=== PATIENT | female | born 1980 | race African-American/Black ===

== ENCOUNTER 2022-07-27 12:01 | Emergency (ER) | payer OTHER, SELFPAY ==
[2022-07-27 12:11] VITALS: BP 173/83; PULSE 89; RESP 20; TEMP 35.8; O2SAT 100
--- NOTE | 2022-07-27 12:45 | ED.URI ---
HPI - URI/Sore Throat General Chief Complaint: Upper Respiratory Infection Stated Complaint: uri Time Seen by Provider: 07/27/22 12:45 Source: patient, RN notes reviewed and old records reviewed Mode of arrival: ambulatory Limitations: no limitations History of Present Illness HPI Narrative: [age] old female presents to the [facility] complaints of sinus congestion that is been going on since [place], worse over the last couple of days. Denies any fevers. No chest pain or abdominal pain. No coughing. Onset (ago): week(s) Consistency: intermittent Related Data Home Medications Medication Instructions Recorded Confirmed atorvastatin 80 mg tablet mg 07/27/22 dulaglutide 0.75 mg/0.5 mL mg subcut 07/27/22 subcutaneous pen injector (Trulicity) ferrous sulfate 325 mg (65 mg mg 07/27/22 iron) tablet (FeroSul) isosorbide mononitrate 30 mg mg PO 07/27/22 tablet,extended release 24 hr lisinopril 20 mg tablet mg 07/27/22 metformin 500 mg tablet mg 07/27/22 metoprolol succinate 25 mg mg PO 07/27/22 tablet,extended release 24 hr Allergies Allergy/AdvReac Type Severity Reaction Status Date / Time No Known Allergies Allergy Unverified 07/27/22 12:07 Review of Systems Review of Systems: All systems reviewed & are unremarkable except as noted in HPI and below Constitutional: Constitutional: Reports no additional constitutional complaints Eyes: Eyes: Reports no additional eye complaints ENT: Reports as per HPI and Reports nasal congestion Cardiovascular: Cardiovascular: Reports no additional cardiovascular complaints, Denies chest pain and Denies dyspnea Respiratory: Respiratory: Reports no additional respiratory complaints, Denies chest congestion, Denies cough and Denies dyspnea Gastrointestinal: Gastrointestinal: Reports no additional gastrointestinal complaints, Denies abdominal pain, Denies nausea and Denies vomiting Musculoskeletal: Musculoskeletal: Reports no additional musculoskeletal complaints Integumentary/Breasts: Skin/Breast: Reports system reviewed and no additional complaints, except as docu Neurologic: Reports system reviewed and no additional complaints, except as documented Psychiatric: Psychiatric: Reports no additional psychiatric complaints Allergic/Immunologic: Allergic/Immunologic: Reports no additional allergic/immunologic complaints PMFSH Comments At the time of my signature, I reviewed and agree with the nursing past medical, surgical, social, and family history. There is no relevant family history pertinent to the patient complaint. Exam Const: General: cooperative, healthy appearing, comfortable, no acute distress, well developed, alert and well nourished Nutritional Appearance: well nourished Orientation/consciousness: patient oriented x3 Limitations: no limitations HENMT: Head: normal to inspection Ears: hearing grossly normal bilaterally and external ears normal Face/Nose/Sinus: Normal external nose present, Normal nares present, Abnormal mucous membranes and turbinates present boggy and erythematous and normal facial exam Face and sinus: normal facial exam, face symmetric and sinus tenderness Mouth: Yes Normal oral and palatal mucosa present, Yes lip normal and Yes moist mucous membranes Throat: posterior oropharynx normal and uvula midline Eyes: General: appearance normal, both eyes and all related structures Alignment and Position: alignment normal Periorbital: periorbital findings normal Conjunctivae: conjunctivae normal Pupils: Equal, round and reactive pupils present EOM: EOMs intact bilaterally Neck: Neck: normal visual inspection, full ROM, no lymphadenopathy and no meningeal signs Chest: Chest palpation & inspection: normal inspection of the chest Resp: Effort & Inspection: normal respiratory effort and able to speak in complete sentences Auscultation: clear to auscultation bilaterally, no crackles, no rales, no rhonchi and no wheezes Car
== END 2022-07-27 13:36 | disposition home or self-care (01) ==
PROVIDERS: Emergency Provider Nurse Practitioner
DX: J32.9 Chronic sinusitis, unspecified (principal); E78.00 Pure hypercholesterolemia, unspecified; I10 Essential (primary) hypertension; E11.9 Type 2 diabetes mellitus without complications; Z86.16 Personal history of COVID-19
CPT/HCPCS: 99213; G0463

== ENCOUNTER 2023-03-07 12:51 | Outpatient (CLI) | payer OTHER, SELFPAY ==
--- NOTE | ~2023-03-07 | XR_ITS ---
EXAMINATION:XR cervical spine 4-5V DATE: 03/07/2023 13:20 INDICATION: Neck pain TECHNIQUE: AP, lateral, lateral swimmers and odontoid views of the cervical spine are provided. COMPARISON: None FINDINGS: Bone alignment is normal. There is reversal of the normal cervical lordosis. The odontoid p rocess is intact. No fracture is identified. The vertebral body heights are maintained. There is mode rate loss of intervertebral disc space height at C5-C6. Small degenerative osteophytes project from t he anterior endplates of multiple vertebral bodies. Prevertebral soft tissues are normal. IMPRESSION: 1. Mild cervical spondylosis without acute findings. Reviewed, dictated and finalized at location A.
== END 2023-03-07 12:52 | disposition home or self-care (01) ==
PROVIDERS: PCP Physician Assistant; Visit Provider Physician Assistant
DX: M47.892 Other spondylosis, cervical region (principal)
CPT/HCPCS: 72050

== ENCOUNTER 2023-06-22 15:07 | Outpatient (CLI) | payer OTHER, SELFPAY ==
--- NOTE | ~2023-06-22 | MM_ITS ---
EXAMINATION: MM screening argelia BI w tonia HISTORY: Baseline screening mammogram TECHNIQUE: Craniocaudal and mediolateral oblique 3-D tomosynthesis images were obtained and synthetic 2-D images were generated. CAD analysis was submitted and interpreted. COMPARISON: None, baseline BREAST PARENCHYMAL COMPOSITION: The breasts are almost entirely fatty. FINDINGS: No suspicious mass, calcification, or architectural distortion are identified in either paulette ast to suggest malignancy. IMPRESSION: 1. No mammographic evidence of malignancy. 2. Recommend routine screening mammography in one year. BI-RADS Category 1: Negative Reviewed, dictated and finalized at location A. MILLER
== END 2023-06-22 15:08 | disposition home or self-care (01) ==
LOC: ANHIMG 15:11
PROVIDERS: PCP Physician Assistant; Visit Provider Physician Assistant
DX: Z12.31 Encounter for screening mammogram for malignant neoplasm of breast (principal)
CPT/HCPCS: 77063; 77067

== ENCOUNTER 2023-06-23 11:15 | Outpatient (RCR) | payer OTHER, SELFPAY ==
--- NOTE | 2023-04-13 15:57 | PTOPEVAL1 ---
Assessment and note entered by Alfredito Baker Evaluation Information Assessment Status Evaluation Diagnosis cervicalgia Onset 02/10/23 Subjective Information Pt. reports that she noticed neck pain developing a couple months ago. She reports that she has developed numbness into the right arm on occasion. She describes pain from the right side of the neck down to her hand. She reports that she has constant tightness in the neck. She reports that she has trouble with reaching behind her back and looking over her right shoulder. She reports that she does have some pain with sleep, but it is not daily. 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 She reports that her goal is to be able to do her job without pain. Reported Pain Level Pain Score 4,5: Self Report Assessment PT Clinical Summary Pt. is a 43 year old female who enters the clinic with neck pain. She presents with impaired ROM, impaired postural awareness, pain, and generalized weakness. Continued skilled PT is indicated in order to improve these areas to allow the pt. to achieve improved comfort with IADL performance. Plan of Care Interventions Electrical Stimulation,Hot Pack/Cold Pack,Manual Therapy,Mechanical Traction,Neuro Re-education, Patient/Caregiver Educati,Therapeutic Activities, Therapeutic Exercise,Self-Care/Home Management PT Services Indicated Yes Treatment Frequency and 2x/week x 10 visits Duration These treatments will address the objective and functional deficits as defined above. The patient will be advanced safely and appropriately in order for the patient to progress towards his/her prior level of function. Additional exercises will be introduced and as well as a comprehensive home exercise program upon discharge, if needed, ?to ensure carryover of functional gains achieved in the clinic. This treatment plan has been reviewed and agreement upon by the patient.
--- NOTE | 2023-04-13 15:58 | OPREHPOC ---
Outpatient Therapy Plan of Care This is a Multidisciplinary Plan of Care that may contain components documented by all disciplines (PT, OT, and ST.) PT Problem 1 PT Problem #1 Knowledge Deficit PT Goal 1 Goal Independent with a HEP addressing c-spine mobility and postural awareness Target Visit 2 PT Problem 2 PT Problem #2 Impaired Range of Motion PT Goal 1 Goal -Pt. will achieve 70 degrees right c-spine rotation and 30 degrees right lateral flexion to improve visual field. Target Visit 10 PT Problem 3 PT Problem #3 Pain PT Goal 1 Goal Pt. will report pain levels at 2/10 at worst with work related duties. Target Visit 10 PT Problem 4 PT Problem #4 Impaired Functional Mobil PT Goal 1 Goal Pt. will demonstrate less than 15% limitaiton on the NDI.
--- NOTE | 2023-05-10 11:53 | PCPTNOTE ---
Pt. canceled 05/10/23 appointment noting that she was sick.
--- NOTE | 2023-06-07 11:53 | OPREHPOC ---
Outpatient Therapy Plan of Care This is a Multidisciplinary Plan of Care that may contain components documented by all disciplines (PT, OT, and ST.) PT Problem 1 PT Problem #1 Knowledge Deficit PT Goal 1 Goal Independent with a HEP addressing c-spine mobility and postural awareness Target Visit 2 Progress Met Comment 06-07-23 progress goal met continue towards goal PT Problem 2 PT Problem #2 Impaired Range of Motion PT Goal 1 Goal -Pt. will achieve 70 degrees right c-spine rotation and 30 degrees right lateral flexion to improve visual field. Target Visit 10 Progress Not Met Comment 06-07-23 progress goals not met, NEW GOALS: 1* cervical rotation R 45' 2* R shoulder flexion 140' 3* L shoulder flexion 130' 4* R shoulder abduction 140' 5* L shoulder abduction 130' PT Problem 3 PT Problem #3 Pain PT Goal 1 Goal Pt. will report pain levels at 2/10 at worst with work related duties. Target Visit 10 Progress Not Met Comment 06-07-23 progress goal not met NEW GOALS: 1* neck pain at worst 6/10 2* R shoulder pain at worst 7/10 3* L shoulder pain at worst 7/10 PT Problem 4 PT Problem #4 Impaired Functional Mobil PT Goal 1 Goal Pt. will demonstrate less than 15% limitaiton on the NDI. Progress Not Met Comment 06-07-23 progress goal not met NEW goal 1* self assessment functional score with Neck Disability Index rating of 25% limitation in activity
--- NOTE | 2023-06-07 11:54 | PTOPPROG ---
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 have not been doing the exercises when pain is worse; PAIN: range in the past week: neck 2-9/10- burning in neck; R shoulder 2-9/10- ant-lat and posterior GH joint-stiff, sore, cannot lift it up, like broken bone in there; also pain in L shoulder 2-10 been not doing much due to shoulder and neck pain, do not lift or move too much; at work, her employer has been not making her do lifting or more activity decrease pain with rest, heat and tylenol; Assessment PT Clinical Summary Heather has received 6 PT sessions, from Mar 24 to May 05, then she did not attend due to work and being ill. Compared to the initial evaluation: pain rating of neck from 4-8/10 to 2-9/10 and R shoulder 5-10/ 10 to 2-9/10; self assessment Neck Disability Index rating of 36 to 50% limitation in activity level; active cervical ROM rotation R decreased, lateral flexion to R is same; continues to have pain and spasms over cervical and upper traps areas. Both shoulders also have decreased ROM and pain, L worse than R. Skilled PT services are indicated to continue treatment. Plan of Care Interventions Electrical Stimulation,Hot Pack/Cold Pack,Manual Therapy,Mechanical Traction,Patient Education,Therapeutic Activities,Therapeutic Exercise,Ultrasound,Other Other Interventions taping, IASTM, dry needling PT Services Indicated Yes Treatment Frequency and 2x/wk for 4 weeks Duration These treatments will address th
--- NOTE | 2023-06-30 11:49 | PCPTNOTE ---
Patient did not show up for scheduled appointment this date. Called and spoke with Pt, Pt apologized for forgetting to cancel. Pt has COVID. Will continue per POC. Pt confirmed her appointment on 07/13/23 @ 15:15.
--- NOTE | 2023-07-13 14:22 | PCPTNOTE ---
This treatment is being continued on visit number [id number]. Please see documentation on both accounts to view progress. Completed interventions, outcomes, and problems have been marked as Inactive to facilitate the copying of the Care plan routine for recurring accounts.
== END 2023-07-12 09:12 | disposition home or self-care (01) ==
LOC: ANHPT 11:15
PROVIDERS: PCP Physician Assistant; Visit Provider Physician Assistant
DX: M54.2 Cervicalgia (principal)
CPT/HCPCS: 97014; 97110; 97112; 97140; 97161; 97530; 99199; G0283

== ENCOUNTER 2023-07-13 07:39 | Outpatient (RCR) | payer OTHER, SELFPAY ==
--- NOTE | 2023-07-13 15:44 | PTOPDC ---
Assessment and note entered by Gabrielle Hooper, PT PT Discharge Assessment PT Clinical Summary PHYSICAL THERAPY DISCHARGE Ethan has received a total of 10 PT sessions, from Apr 13 to June 23. She called and canceled one and did not show for one appointment. She did not show for today's reevaluation appointment, therefore discharge from PT services. The goals were not addressed. Plan of Care PT Services Indicated No
== END 2023-07-13 16:21 | disposition home or self-care (01) ==
LOC: ANHPT 07:39
PROVIDERS: PCP Physician Assistant; Visit Provider Physician Assistant
DX: M54.2 Cervicalgia (principal)
CPT/HCPCS: 99199